=== PATIENT | male | born 1955 | race Caucasian/White ===

== ENCOUNTER → 2017-11-30 11:30 | Outpatient (CLI) | payer MEDICAID, SELFPAY ==
[2017-11-30 10:34] LABS: Basophils # 0.1 K/mm3 (0-0.2); Basophils % 0.7 % (0.1-2.0); Eosinophils # 0.4 K/mm3 (0.0-0.4); Hematocrit 48.7 % (42.0-52.0); Lymphocytes # 3.5 K/mm3 (0.7-4.5); Lymphocytes % 33.3 K/mm3 (10-50); Mean Corpuscular HGB Conc 32.8 g/dL (31.8-35.4); Mean Corpuscular Hemoglobin 33.5 pg (27.0-31.2); Mean Corpuscular Volume 101.9 fl (80-94); Mean Platelet Volume 7.3 fl (7.4-10.4); Monocytes # 0.8 K/mm3 (0.1-1.0); Monocytes % 7.5 % (1.7-9.3); Neutrophils # 5.7 K/mm3 (1.8-7.8); Neutrophils % 54.5 % (37.0-80.0); Platelet Count 327 K/mm3 (142-424); Red Blood Count 4.78 M/mm3 (4.60-6.20); Red Cell Distribution Width 13.3 % (11.5-17.5); White Blood Count 10.4 K/mm3 (4.8-10.8)
[2017-11-30 11:29] LABS: Anion Gap 13.7 mEq/L (5-15); Blood Urea Nitrogen 14 mg/dL (7-18); Carbon Dioxide 25 mmol/L (21.0-32.0); Chloride 103 mmol/L (98-107); Creatinine,Serum 0.82 mg/dL (0.70-1.30); Estimated Glomerular Filt Rate 95 ml/min (>60); GFR (African American) 115 ML/MIN (>60); Glucose 101 mg/dL (74-106); Potassium 4.7 mmoL/L (3.5-5.1); Sodium 137 mmol/L (136-145)
== END ==
PROVIDERS: Visit Provider Surgery
DX: Z12.11 Encounter for screening for malignant neoplasm of colon (principal); Z01.812 Encounter for preprocedural laboratory examination
CPT/HCPCS: 36415; 80048; 85025

== ENCOUNTER 2024-06-20 10:05 | Outpatient (CLI) | payer MEDICARE, OTHER, SELFPAY ==
--- NOTE | 2024-06-20 10:14 | XR_ITS ---
FINAL REPORT CLINICAL HISTORY: chest discomfort FINDINGS: TWO-VIEW CHEST The heart size is normal. The mediastinum is normal. There are right upper lobe opacities consistent with pneumonia. There is no pneumothorax. IMPRESSION: Right upper lobe pneumonia. Recommend continued follow-up. Reviewed, Interpreted and Dictated by Alexandre Restrepo III, MD Transcribed by Ira Stoll Authenticated and [facility]
== END 2024-06-20 23:59 | disposition home or self-care (01) ==
LOC: RAD 10:06
PROVIDERS: PCP Family Medicine; Visit Provider Family Medicine
DX: R07.89 Other chest pain (principal)
CPT/HCPCS: 71046

== ENCOUNTER 2024-07-04 08:37 | Outpatient (CLI) | payer MEDICARE, OTHER, SELFPAY ==
--- NOTE | 2024-07-04 08:45 | FL_ITS ---
FINAL REPORT CLINICAL HISTORY: upper abd pain 3.18 min DAP 2188.89 FINDINGS: UPPER GI WITH SBFT HISTORY: Abdominal pain, nausea. PROCEDURE: The patient ingested barium. Effervescent crystals were also administered. 30 spot and overhead films were obtained. Additional barium was administered for a SBFT. Fluoro time: 3 minutes 18 seconds DAP: 2188.89 uGy.m2 FINDINGS: The esophagus is normal. There is a tiny hiatal hernia. There is no gastroesophageal reflux. Peristalsis is normal. The rugal fold pattern of the stomach is normal. The duodenal bulb is normal. Mild esophageal dysmotility was demonstrated during the exam. IMPRESSION: Tiny hiatal hernia. Esophageal dysmotility. SBFT: The supervisor clam bed film is normal. There is no evidence of obstruction. The mucosal fold pattern is normal. The terminal ilium is normal. IMPRESSION: Normal SBFT. Films reviewed, interpreted and dictated by Dr. Richard. Transcribed by Brennon Jane PA-C. Reviewed, Interpreted and Dictated by Josh Richard MD Transcribed by HETAL Crooks Authenticated and [facility]
[2024-07-04] MEDS: BARIUM SULFATE(LIQUID E-Z-PAQUE);355ML BOTTLE 355 ML PO (09:57)
[2024-07-04] MEDS: E-Z-GASII EFFERVESCENT GRANULES;1PK 1 EACH PO (09:57)
[2024-07-04] MEDS: DIATRIZOATE MEG 66% & DIATRIZOATE NA 10% 30ML UDC 15 ML PO (09:57)
[2024-07-04] MEDS: BARIUM SULFATE (E-Z-HD 340GM);135ML BOTTLE 135 ML PO (09:57)
== END 2024-07-04 23:59 | disposition home or self-care (01) ==
LOC: RAD 08:38
PROVIDERS: PCP Family Medicine; Visit Provider Family Medicine
DX: R10.10 Upper abdominal pain, unspecified (principal)
CPT/HCPCS: 74246; 74248; Q9963

== ENCOUNTER 2024-07-10 10:24 | Outpatient (CLI) | payer MEDICARE, OTHER, SELFPAY ==
--- NOTE | 2024-07-10 10:28 | FL_ITS ---
FINAL REPORT CLINICAL HISTORY: DIVERTICULITIS UPPER ABD PAIN, DYSPHASIA 28.85 mGy 469.35 DAP 4:05 fluoro FINDINGS: MODIFIED BARIUM SWALLOW History: Dysphagia FINDINGS: Fluoroscopy was provided for the speech pathologist to evaluate the swallowing mechanism. The patient was given several different consistencies of barium while the swallow was visualized fluoroscopically. The report of the speech pathologist should be consulted prior to making dietary decisions. Fluoroscopy time: 4 minutes 5 seconds Fluoro dose: 469.35 DAP in uGym2 IMPRESSION: Modified barium swallow under fluoroscopic guidance. Please see the report of the speech pathologist for Dietary recommendations. Films reviewed , interpreted and dictated by Dr. Richard. Transcribed by Jung Fuentes PA-C. Reviewed, Interpreted and Dictated by Josh Richard MD Transcribed by HETAL Sparks Authenticated and [facility]
[2024-07-10] MEDS: BARIUM SULFATE(LIQUID E-Z-PAQUE);355ML BOTTLE 355 ML PO (11:26)
--- NOTE | 2024-07-10 13:53 | HMH.SLMBS2 ---
Speech & Language Evaluation Speech/Language Mod Barium Swallow Start: 07/10/24 13:17 Freq: once Status: Complete Protocol: Document 07/10/24 13:17 [facility] (Rec: 07/10/24 13:53 [facility] Laptop) Co-signed By [facility] General Information General Current Food Consistancy Regular,Thin Liquids Dentition Edentulous Oxygen Status Room Air Facial Symmetry Symmetrical Patient Orientation Person,Place,Time,Situation Ability to Follow Directions Excellent Communication Ability No Impairment MBS Recommendations Diet Dietary Recommendations Mechanical Soft,Thin Liquids Treatment/Strategies Strategy/Precaution Recommend Sitting Upright (90 deg),Chin Tuck,Double Swallow, Supraglottic Swallow,Small Bites and Sips,Alternate Liquids/Solids Mod Barium Swallow Impressions Summary and Impressions Oral Phase Impression Mild Impairment Oral Phase Summary Mild impairment of the oral phase of swallow. Adequate labial closure w/ no anterior loss on any consistency trialed. No scattered loss of the bolus on any consistency trialed. Minimal oral residue on pudding, mechanical soft, and regular food trials, all of which were cleared with a double swallow. Reduced mastication and manipulation of the bolus '2 dentition. Pharyngeal Phase Impression Moderate Impairment Pharyngeal Phase Summary Moderate impairment of the pharyngeal phase of swallow. No aspiration or penetration noted on any consistency trialed. No A/P lingual propulsion spills or swallow response delay noted on any consistency trialed. Adequate base of tongue retraction, hyolaryngeal excursion and elevation, and epiglottic coverage on all consistencies trialed. Moderate amount of residue in the vallecula during pudding, puree, mechanical soft, and regular food trials. MEDICAL DEVICE ENGINEER attempted chin tuck, effortful swallow, multiple swallows, supraglottic swallow, and liquid and puree washes to clear residue. Throat clearing was successful at clearing residue on each trial. Vallecular retention noted during pill trial, which was cleared with a liquid wash. Pt demonstrated adequate sensation to vallecular residue. Speech/Language MBS Assessment/Goals/Plan Assessment Date of Evaluation: 07/10/24 Evaluation Type Initial Certification Assessment/Problems diverticulitis and dysphagia per MD order Does Patient Qualify for Service No Qualify/Failure Comment Based on clinical observations made throughout instrumental assessment (MBSS) and pt interview, further skilled speech services are not warranted d/t adequate compensatory strategies and diet recommendations. Recommendations PHYSICIAN CERTIFICATION: The specified therapy services are required, authorized, and reviewed every 30 days. Diet Recommendations Mechanical Soft Liquid Type Recommendations Normal/Thin SL Swallow Guidelines Alt bite w/sip thru meal, Standard Aspiration Prec.,Eat at slow rate,Oral Care Education Dysphagia Swallow Precautions/Strategies Sitting Upright (90 deg),Chin Tuck,Double Swallow, Supraglottic Swallow,Small Bites and Sips,Alternate Liquids/Solids Plan Pt/Guardian verbally ack understanding Yes of dx/prognosis/goals G -code Required No Education Instructions provided MEDICAL DEVICE ENGINEER discussed clinical observations made throughout MBSS, diet recommendations, and aspiration precautions/ compensatory strategies with pt who expressed understanding . Pt/Caregiver able to recall information Able to recall/restate Reinforcement needed No Mod Barium Swallow Setup Exam Setup Radiologist Alexandre Restrepo Level of Consciousness Awake,Alert,Appropriate, Follows Commands Mod Barium Swallow-Lat View Textures Lateral View Food Presentation Thin Liquid via Cup,Thin Liquid via Straw,Pureed Food- Thick,Mech. Soft Food- Regular ,Barium Tablet,Regular Food, Pudding Comment All bolus presentations trialed x2 to assess for fatigue and consistency. Oral Phase Labial Closure No Impairment (WFL) Bolus Formation Pooling L/R No Impairment (WFL) Bolus Formation under Tongue No Impairment (WFL) Bolus Formation Scattered Loss No Impairment (WFL) Mastication Rotary Chew Mild Impairment Mastication Munching Mild Impairment Mastication Lateralization Mild Impairment Lingual Movement No Impairment (WFL) Residue Clearing Minimal Impairment Pharyngeal Phase A/P Lingual Propulsion Spills No Impairment (WFL) Swallow Response Delay No Impairment (WFL) Base of Tongue No Impairment (WFL) Epiglottic Coverage No Impairment (WFL) Laryngeal Elevation No Impairment (WFL) Vallecular Retention Clearing Moderate Impairment Pharyn. Wall Residue Clearing No Impairment (WFL) Piriform Sinus Retention No Impairment (WFL) Aspiration? No Silent aspiration? No Mod Barium Swallow-AP View Performed Mod Barium Swallow A/P View Test Not Applicable/Performed PHYSICIAN CERTIFICATION: I certify the specified therapy services for Moncho Patrick are required, authorized, and reviewed every 30 days.
== END 2024-07-10 23:59 | disposition home or self-care (01) ==
LOC: RAD 10:25
PROVIDERS: PCP Family Medicine; Visit Provider Family Medicine
DX: K57.92 Diverticulitis of intestine, part unspecified, without perforation or abscess without bleeding (principal); R10.10 Upper abdominal pain, unspecified; R47.02 Dysphasia; R13.12 Dysphagia, oropharyngeal phase
CPT/HCPCS: 70371; 92611